=== PATIENT | female | born 1965 | race Caucasian/White ===

== ENCOUNTER 2017-04-09 15:30 | Outpatient (RCR) | payer BC | END 2017-04-09 16:00 | disposition home or self-care (01) | LOC: PT 15:30 | DX: S46.811D Strain of other muscles, fascia and tendons at shoulder and upper arm level, right arm, subsequent encounter (principal) ==

== ENCOUNTER → 2017-04-19 | Outpatient (CLI) | payer BC | LOC: LAB 12:12 | DX: R68.89 Other general symptoms and signs (principal) ==